=== PATIENT | female | born 1990 ===

== ENCOUNTER 2017-11-18 18:51 | Emergency (ER) | payer MEDICAID, OTHER ==
--- NOTE | 2017-11-18 19:19 | ED PDOC ---
Arrival/HPI - General Time Seen by Provider: 11/18/17 19:09 Historian: Patient - History of Present Illness Narrative History of Present Illness (Text): 11/18/17 19:16 27 year old female, whose history includes diabetes, presents to the Emergency department complaining of vomiting for 2 months. patient was supposed to followup with a firepot operator and tender but was unable due to lack of insurance. Today, the patient was still vomiting and also began experiencing left sided abdominal pain. Patient denies any fever, chills, chest pain, shortness of breath, diarrhea, urinary symptoms, back pain, neck pain, headache, dizziness, or any other complaints. Time/Duration: > month Symptom Onset: Gradual Symptom Course: Worsening Context: Home Past Medical History - Provider Review Nursing Documentation Reviewed: Yes - Infectious Disease Hx of Infectious Diseases: None - Tetanus Immunization Tetanus Immunization: Unknown - Gastrointestinal Hx Gastritis: Yes - Psychiatric Hx Depression: No Hx Substance Use: No - Suicidal Assessment Feels Threatened In Home Enviroment: No Family/Social History - Physician Review Nursing Documentation Reviewed: Yes Family/Social History: Unknown Family HX Smoking Status: Never Smoked Hx Alcohol Use: No Hx Substance Use: No Hx Substance Use Treatment: No Allergies/Home Meds Allergies/Adverse Reactions: Allergies No Known Allergies Allergy (Unverified 12/13/12 15:17) Home Medications: Home Meds Medication Instructions Recorded Confirmed Insulin Detemir [Levemir] 12/24/12 06/11/13 Insulin Human Regular 12/24/12 06/11/13 Review of Systems - Physician Review All systems were reviewed & negative as marked: Yes - Review of Systems Constitutional: absent: Fevers, Night Sweats Respiratory: absent: SOB Cardiovascular: absent: Chest Pain Gastrointestinal: Abdominal Pain (left sided), Nausea, Vomiting. absent: Diarrhea Genitourinary Female: absent: Dysuria Musculoskeletal: absent: Back Pain, Neck Pain Neurological: absent: Headache, Dizziness Physical Exam Vital Signs Reviewed: Yes Vital Signs Temp 11/18/17 19:14 98.4 F Temperature: Afebrile - Systems Exam Head: Present: Atraumatic, Normocephalic Pupils: Present: PERRL Extroacular Muscles: Present: EOMI Conjunctiva: Present: Normal Mouth: Present: Moist Mucous Membranes Neck: Present: Normal Range of Motion Respiratory/Chest: Present: Clear to Auscultation, Good Air Exchange. No: Respiratory Distress, Accessory Muscle Use Cardiovascular: Present: Regular Rate and Rhythm, Normal S1, S2. No: Murmurs Abdomen: Present: Tenderness (left sided abdominal tenderness). No: Distention Back: Present: Normal Inspection Upper Extremity: Present: Normal Inspection. No: Cyanosis, Edema Lower Extremity: Present: Normal Inspection. No: Edema Neurological: Present: GCS=15, CN II-XII Intact, Speech Normal Skin: Present: Warm, Dry, Normal Color. No: Rashes Psychiatric: Present: Alert, Oriented x 3, Normal Insight, Normal Concentration Medical Decision Making ED Course and Treatment: 11/18/17 19:20 Impression: 27 year old female presents to the Emergency department complaining of vomiting for the last 2 months that reportedly worsened today. Plan: -- Urine culture -- Urinalysis, urine test -- ABG -- Labs -- Benadryl, Reglan, Zofran, and Sodium Chloride IV fluids -- Reassess and disposition Prior Visits: Notes and results from previous visits were reviewed. Progress Notes: - Lab Interpretations Lab Results: 11/18/17 19:40 11/18/17 19:40 Lab Results 11/18/17 19:40: Alcohol, Quantitative < 10 11/18/17 19:40: Urine Opiates Screen Negative, Urine Methadone Screen Negative, Ur Barbiturates Screen Negative, Ur Phencyclidine Scrn Negative, Ur Amphetamines Screen Negative, U Benzodiazepines Scrn Negative, U Oth Cocaine Metabols Negative, U Cannabinoids Screen Positive H 11/18/17 19:40: Sodium 143, Potassium 3.5 L, Chloride 101, Carbon Dioxide 28, Anion Gap 17, BUN 20, Creatinine 0.5 L, Est GFR ( Amer) > 60, Est GFR ( Non-Af Amer) > 60, Random Glucose 119 H, Calcium 10.1, Total Bilirubin 0.7, Direct Bilirubin 0.1, AST 29, ALT 39, Alkaline Phosphatase 60, Total Protein 8.2 , Albumin 4.6, Globulin 3.6, Albumin/Globulin Ratio 1.3, Lipase 211 11/18/17 19:40: Urine Color Yellow, Urine Appearance Clear, Urine pH 6.5, Ur Specific [place] <= 1.005, Urine Protein Trace H, Urine Glucose (UA) Negative, Urine Ketones Trace H, Urine Blood Negative, Urine Nitrate Negative, Urine Bilirubin Negative, Urine Urobilinogen 1.0 H, Ur Leukocyte Esterase Negative, Urine RBC Negative, Urine WBC Negative, Ur Epithelial Cells 1 - 3, Urine Bacteria Neg 11/18/17 19:40: PT 12.8 H, INR 1.12 H 11/18/17 19:40: WBC 7.3, RBC 4.45, Hgb 13.2, Hct 39.3, MCV 88.3, MCH 29.7, MCHC 33.6, RDW 14.0, Plt Count 445, MPV 8.3, Gran % 66.7, Lymph % (Auto) 21.5 L, [place] % (Auto) 11.1 H, Eos % (Auto) 0.4 L, Baso % (Auto) 0.3, Gran # 4.85, Lymph # (Auto) 1.6, [place] # (Auto) 0.8 H, Eos # (Auto) 0.0, Baso # (Auto) 0.02 11/18/17 19:36: POC Glucose (mg/dL) 116 H - RAD Interpretation Radiology Orders: 11/18/17 20:46 ABDOMEN PORTABLE 2 VIEWS [RAD] Stat - Medication Orders Current Medication Orders: Discontinued Medications Diphenhydramine HCl (Benadryl) 50 mg IVP STAT STA Stop: 11/18/17 19:26 Last Admin: 11/18/17 19:59 Dose: 50 mg IVP Administration Document 11/18/17 19:59 MS (Rec: 11/18/17 19:59 [id number] Charges for Administration # of IVP Administrations 1 Diphenhydramine HCl (Benadryl) 25 mg IVP STAT STA Stop: 11/18/17 20:47 Sodium Chloride (Sodium Chloride 0.9%) 2,000 mls @ 999 mls/hr IV .Q2H1M STA Stop: 11/18/17 21:24 Last Admin: 11/18/17 19:58 Dose: 999 mls/hr eMAR Start Stop Document 11/18/17 19:58 MS (Rec: 11/18/17 19:59 [id number] Intravenous Solution Start Date 11/18/17 Start Time 19:59 End Date 11/18/17 End time 20:59 Total Infusion Time 60 Metoclopramide HCl (Reglan) 10 mg IVP STAT STA Stop: 11/18/17 19:26 Last Admin: 11/18/17 20:00 Dose: 10 mg IVP Administration Document 11/18/17 20:00 MS (Rec: 11/18/17 20:00 [id number] Charges for Administration # of IVP Administrations 1 Metoclopramide HCl (Reglan) 10 mg IVP STAT STA Stop: 11/18/17 20:47 Ondansetron HCl (Zofran Inj) 8 mg IVP STAT STA Stop: 11/18/17 19:26 Last Admin: 11/18/17 19:59 Dose: 8 mg IVP Administration Document 11/18/17 19:59 MS (Rec: 11/18/17 19:59 [id number] Charges for Administration # of IVP Administrations 1 Ondansetron HCl (Zofran Odt) 8 mg PO STAT STA Stop: 11/18/17 20:46 Potassium Chloride (K-Dur 20 Meq Er Tab) 40 meq PO STAT STA Stop: 11/18/17 20:46 - Scribe Statement The provider has reviewed the documentation as recorded by the Kamranibleti Shaw All medical record entries made by the Kamranibleti were at my direction and personally dictated by me. I have reviewed the chart and agree that the record accurately reflects my personal performance of the history, physical exam, medical decision making, and the department course for this patient. I have also personally directed, reviewed, and agree with the discharge instructions and disposition. Disposition/Present on Arrival - Present on Arrival Any Indicators Present on Arrival: No History of DVT/PE: No History of Uncontrolled Diabetes: No Urinary Catheter: No History Surgical Site Infection Following: None - Disposition Have Diagnosis and Disposition been Completed?: Yes Diagnosis: Vomiting, Nausea Disposition: HOME/ ROUTINE Disposition Time: 21:29 Patient Plan: Discharge Patient Problems: Current Active Problems Problem Status Onset Nausea Acute Vomiting Acute Condition: GOOD Discharge Instructions (ExitCare): Nausea and Vomiting, Adult (DC) Additional Instructions: Jing - You really need to see a firepot operator and tender. But until that can happen. Use the Benadryl, Reglan and Zofran Three times a day. It should absolutely work for you. Follow up with your doctor or clinic. Return to us if problems. [place]- Dr. Junaid Flanagan Prescriptions: DiphenhydrAMINE [Benadryl] 50 mg PO TID #30 cap Metoclopramide HCl [Reglan] 10 mg PO TID #30 tablet Ondansetron ODT [Zofran ODT] 8 mg PO TID #30 odt Referrals: Brenda Arias MD [Primary Care Provider] - Follow up with primary
[2017-11-18 19:23] VITALS: TEMP 98.4; BMI 20.9
[2017-11-18] MEDS ORDERED: Sodium Chloride 0.9% 2,000 ML IV STA (19:24)
[2017-11-18] MEDS ORDERED: DiphenhydrAMINE 50 mg/ml Inj IVP STA ×2 (19:25→20:46)
[2017-11-18 20:10] LABS: BASO # 0.02 K/mm3 (0.0-2.0); BASO % 0.3 % (0.0-3.0); EOS % 0.4 % (1.5-5.0); GRAN # 4.85 (1.4-6.5); GRAN % 66.7 % (50.0-68.0); HEMOGLOBIN 13.2 g/dL (12.0-16.0); LYMPH # 1.6 (1.2-3.4); LYMPH % 21.5 % (22.0-35.0); MEAN CELL VOLUME 88.3 fl (80.0-105.0); MEAN CORPUSCULAR HEMOGLOBIN 29.7 pg (25.0-35.0); MEAN CORPUSCULAR HGB CONC 33.6 g/dl (31.0-37.0); MEAN PLATELET VOLUME 8.3 fl (7.0-11.0); MONO # 0.8 (0.1-0.6); MONO % 11.1 % (1.0-6.0); RBC 4.45 10^6/uL (3.5-6.1); WHITE BLOOD COUNT 7.3 10^3/ul (4.5-11.0)
[2017-11-18 20:11] LABS: PH,URINE 6.5 (4.7-8.0); URINE BILIRUBIN NEGATIVE (NEGATIVE); URINE BLOOD NEGATIVE (NEGATIVE); URINE GLUCOSE (UA) NEGATIVE (NEGATIVE); URINE LEUKOCYTE ESTERASE NEGATIVE Leu/uL (NEGATIVE); URINE PROTEIN TRACE mg/dL (<30 mg/dL)
[2017-11-18 20:12] LABS: URINE APPEARANCE CLEAR (CLEAR); URINE COLOR YELLOW (YELLOW)
[2017-11-18 20:18] LABS: URINE RBC NEGATIVE /hpf (0-2); URINE WBC NEGATIVE /hpf (0-6)
[2017-11-18 20:19] LABS: URINE BACTERIA NEG (NEG)
[2017-11-18 20:24] LABS: INR 1.12 (0.93-1.08); PROTHROMBIN TIME 12.8 SECONDS (9.4-12.5)
[2017-11-18 20:26] LABS: ALB/GLOB RATIO 1.3 (1.1-1.8); ALBUMIN 4.6 g/dL (3.0-4.8); ALT/SGPT 39 U/L (7-56); AST/SGOT 29 U/L (14-36); BILIRUBIN,DIRECT 0.1 mg/dL (0.0-0.4); BLOOD UREA NITROGEN 20 mg/dL (7-21); CALCIUM 10.1 mg/dL (8.4-10.5); GFR AFRICAN-AMERICAN > 60; GFR NON-AFRICAN AMERICAN > 60; LIPASE 211 U/L (23-300)
[2017-11-18 20:41] LABS: BARBITURATES, UR NEGATIVE (NEGATIVE); BENZODIAZEPINES, UR NEGATIVE (NEGATIVE); OPIATES, UR NEGATIVE (NEGATIVE); PHENCYCLIDINE, UR NEGATIVE (NEGATIVE)
[2017-11-18] MEDS ORDERED: Potassium Chloride 20 mEq ER Tab PO STA (20:45)
[2017-11-18 21:29] LABS: VENOUS BLOOD GAS BASE EXCESS 1.5 mmol/L (0.0-2.0); VENOUS BLOOD GAS PO2 47 mm/Hg (30-55)
[2017-11-18 22:41] VITALS: BP 122/72; PULSE 88; RESP 16; O2SAT 99
--- NOTE | 2017-11-19 10:09 | RAD ---
HISTORY: ?gastroparesis, flat and upright. please/thank you COMPARISON: No prior. FINDINGS: BOWEL: Normal. No obstruction. No free air. BONES: Normal. OTHER FINDINGS: None. IMPRESSION: No active disease.
== END 2017-11-18 22:30 | disposition home or self-care (01) ==
LOC: ED 18:51
DX: R11.2 Nausea with vomiting, unspecified (principal); E11.9 Type 2 diabetes mellitus without complications; Z79.4 Long term (current) use of insulin
CPT/HCPCS: 74019; 80053; 80320; 80324; 80345; 80346; 80349; 80353; 80358; 80361; 81001; 81025; 82248; 82803; 82948; 83690; 83992; 85025; 85610; 87086; 96361; 96374; 96375; 99284; J1200; J2405; J2765; J7030